=== PATIENT | female | born 1975 | race Caucasian/White ===

== ENCOUNTER 2021-02-12 13:30 | Emergency (ER) | payer MEDICAID ==
[~2021-02-12] VITALS: Ht 160 cm; Wt 59.1 kg
[2021-02-12 14:49] VITALS: BP 122/77
== END 2021-02-12 14:50 | disposition home or self-care (01) ==
LOC: EMS 13:41
DX: R04.0 Epistaxis (principal)
CPT/HCPCS: 99281; Z7502